=== PATIENT | female | born 1940 | race Caucasian/White ===

== ENCOUNTER → 2024-12-13 | Outpatient (CLI) | payer OTHER, SELFPAY ==
[2024-12-13 13:53] LABS: Collection Type, Urine Clean Catch
[2024-12-13 16:14] LABS: Bacteria,Urine 1+; Bilirubin,Urine Negative (Negative); Blood,Urine 1+ (Negative); Color,Urine Yellow (Lt Yel-Yel); Glucose, Urine Negative (Negative); Ketones,Urine Negative (Negative); Leukocyte Esterase,Urine Positive (Negative); Nitrite,Urine Positive (Negative); PH,Urine 5.5 (5.0-7.0); Protein,Urine Negative (Neg - Trace); RBC,Urine 24 /hpf (0-3); Specific Gravity,Urine 1.012 (1.001-1.035); Squamous Epithelial Cell,Urine 1 /hpf (0-5); Urobilinogen,Urine Negative mg/dL (0.0-1.0); WBC,Urine 950 /hpf (0-5)
[2024-12-13 16:47] LABS: Clarity,Urine Hazy (Clear/Hazy)
== END | disposition home or self-care (01) ==
PROVIDERS: PCP Physician Assistant; Referring Provider Physician Assistant; Visit Provider Physician Assistant
DX: Z01.89 Encounter for other specified special examinations (principal)
CPT/HCPCS: 81001

== ENCOUNTER → 2025-01-20 | Outpatient (CLI) | payer OTHER, SELFPAY ==
[2025-01-20 15:32] LABS: Collection Type, Urine Clean Catch
[2025-01-20 18:04] LABS: Bilirubin,Urine Negative (Negative); Blood,Urine 1+ (Negative); Calcium Oxalate Crystals,Urine 4+; Clarity,Urine Turbid (Clear/Hazy); Color,Urine Yellow (Lt Yel-Yel); Glucose, Urine Negative (Negative); Ketones,Urine Negative (Negative); Leukocyte Esterase,Urine Positive (Negative); Nitrite,Urine Positive (Negative); PH,Urine 6.0 (5.0-7.0); Protein,Urine Trace (Neg - Trace); RBC,Urine 4 /hpf (0-3); Specific Gravity,Urine 1.024 (1.001-1.035); Squamous Epithelial Cell,Urine 3 /hpf (0-5); Urobilinogen,Urine Negative mg/dL (0.0-1.0); WBC,Urine 271 /hpf (0-5)
== END | disposition home or self-care (01) ==
LOC: SLDO 14:56
PROVIDERS: PCP Physician Assistant; Referring Provider Physician Assistant; Visit Provider Physician Assistant
DX: N39.0 Urinary tract infection, site not specified (principal)
CPT/HCPCS: 81001; 87077; 87086; 87186

== ENCOUNTER 2025-03-11 18:09 | Emergency (ER) | payer OTHER, SELFPAY ==
[2025-03-11 18:26] VITALS: BP 138/83; PULSE 90; RESP 19; TEMP 37.1; O2SAT 98
--- NOTE | 2025-03-11 18:28 | XR_ITS ---
Examination:Left hip AP, lateral, AP pelvis 3 views Technique: Hip AP lateral, AP pelvis, 3 views Exam date and time:March 11, 2025 1847 hrs. Indications: Patient fell today with injury to the left hip, left hip pain. Findings: Severe osteopenia No acute left hip fracture or dislocation noted Right hip bones of the pelvis intact Impression: No acute hip or pelvic fracture noted Given the severe osteopenia, recommend 1-2 day follow-up AP pelvis as clinically warranted.
--- NOTE | 2025-03-11 18:28 | XR_ITS ---
Examination: Left hand 2 views Technique one AP lateral left hand 2 views Date and time: March 11, 2025, 1847 hrs. Indications: Patient fell today with injury to the hand, hand pain. Findings: Severe osteopenia On the AP view there appears to be subluxation at the first metacarpophalangeal joint which may be chronic Suspicious for nondisplaced fracture on the AP view involving the base of the fifth metacarpal Impression: Suspicious for fracture at the base of the fifth metacarpal on this limited study, no oblique film On the AP view there appears to be subluxation at the first metacarpal phalangeal joint, this may be chronic, clinical correlation advised
--- NOTE | 2025-03-11 18:28 | XR_ITS ---
Examination: Forearm, left, 2 views. Technique: Forearm, AP, lateral 2 views Date and time of exam: March 11, 2025 1847 hrs. Indications: Patient fell today with injury to the forearm, forearm pain. Findings: Prominent osteopenia. No fracture or dislocation Impression: No fracture or dislocation.
--- NOTE | 2025-03-11 18:28 | XR_ITS ---
Examination: CT brain head without contrast. 2-D sagittal coronal reconstructions Date and time of exam:March 11, 2025, 1938 hrs. Indications: Onset headache today after following CTDI: vol (mGy):51 DLP: (mGycm):1038 Technique: Multiple CT axial sections of the brain have been obtained, 5 mm slice thickness. Contrast has not been administered. 2-D sagittal, coronal reconstructions have been obtained Low dose protocols were performed. One or more of the following dose reduction techniques were used; automated exposure control, adjustment of the mA and/or KV according to patient size, use of iterative reconstruction technique. Findings: No significant ventricular enlargement. Prominent frontal atrophy Intra-axial or extra-axial hemorrhage density is not seen. No mass effect or midline shift Basal cisterns are not remarkable. Fourth ventricle is midline. Cranial vault intact. Impression: Negative for acute hemorrhage, mass effect or midline shift
[2025-03-11 18:30] VITALS: PULSE 85; RESP 18
--- NOTE | 2025-03-11 18:30 | EKG_ITS ---
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
--- NOTE | 2025-03-11 18:31 | PD.EDADULT ---
ED General RME/HPI General Chief complaint: Fall Stated complaint: FALL Time Seen by Provider: 03/11/25 18:16 Arrival date/time: 03/11/25 18:09 RME / HPI RME / HPI narrative: Martha is a 84 y/o female with PMHx of CAD, HTN, who comes in for evaluation after mechanical fall after tripping over her walker when trying to use the restroom. Patient reports that she has had 1 fall before but that was many years ago. She says that she is not on any blood thinners currently and uses a walker at times. She says that she landed on her face and also her left hand and also may have injured her left hip as well. She says that this fall was unwitnessed and she lives at home with her son who went out for a smoking break at the time. She denies losing consciousness or having any feelings of syncope prior to the fall. She is not on any chronic steroids at this time. Denies any associated chest pain, shortness of breath. Related Data Home Medications ?Medication ?Instructions ?Recorded ?Confirmed aspirin 81 mg tablet,delayed 81 mg PO QDAY 07/13/20 11/01/23 release coenzyme Q10 100 mg capsule 100 mg PO QDAY 07/13/20 11/01/23 (CoQ-10) mecobalamin (vitamin B12) 1,000 1,000 mcg PO QDAY 07/13/20 11/01/23 mcg chewable tablet metoprolol tartrate 25 mg tablet 25 mg PO BID 07/13/20 11/01/23 clopidogrel 75 mg tablet 75 mg PO QDAY 09/26/21 11/01/23 Previous Rx's ?Medication ?Instructions ?Recorded benzonatate 100 mg capsule 100 mg PO Q8HR PRN Cough #14 caps 11/06/23 methylprednisolone 4 mg tablets in 4 mg PO QAM #21 tabs 11/06/23 a dose pack (Medrol (Baldemar)) Allergies Allergy/AdvReac Type Severity Reaction Status Date / Time atorvastatin Allergy Severe Hives Verified 11/26/21 06:57 Sulfa (Sulfonamide AdvReac Intermediate Rash, Verified 11/26/21 06:57 Antibiotics) Itching Review of Systems Review of Systems Narrative Review of Systems: Constitutional: No fever, chills, fatigue, weakness, weight loss HEENT: No eye pain, vision loss, ear pain, hearing loss, dysphagia, Cardiovascular: No chest pain, palpitations, edema, pain with walking Respiratory: No cough, shortness of breath, wheezing GI: No NVD, abdominal pain, constipation, blood in stool, loss of appetite, heartburn Extremities: Positive left hip pain, left hand pain, forehead pain MSK: No back pain, joint pain, joint swelling Neuro: No dizziness, numbness, weakness, headaches, seizures, tremors Psych: No anxiety, depression ED Exam Narrative Physical exam: General: AAOx3, NAD, elderly female HEENT: Moist mucous membranes, conjunctiva clear, EOMI, PERRLA, abrasion present on forehead Cardiovascular: S1, S2, radial pulses +2 bilat, RRR Pulmonary: CTAB bilat no cough, no wheezing GI: No tenderness to light or deep palpitation, no guarding, rigidity, rebound tenderness or distension Extremities: TTP of L hand with limited ROM, L hip TTP, TTP to L forearm with limited ROM Neuro: AAOx3, no focal motor or sensory deficits in the UE or LE bilat Psych: Good judgement, thought and behavior Course Quality Measures none Orders Category Date Time Status Bedside COVID-19 Antigen Test NOW Care 03/11/25 18:52 Active Bedside Influenza A&B Antigen Test NOW Care 03/11/25 18:52 Completed EKG (ED ONLY) *Do not use* NOW Care 03/11/25 18:30 Completed Miscellaneous Nursing Order NOW Care 03/11/25 21:04 Active Saline [Insert IV] NOW Care 03/11/25 18:52 Active Straight [In and Out Catheter] X1 Care 03/11/25 18:[address] cervical spine wo con Stat Exams 03/11/25 18:[address] chest abdomen pelvis wo Stat Exams 03/11/25 18:[address] facial bones wo con Stat Exams 03/11/25 18:[address] head/brain wo con Stat Exams 03/11/25 18:28 Completed EKG (ED Only) Stat Exams 03/11/25 18:30 Draft XR chest 1V portable Stat Exams 03/11/25 18:35 Completed XR forearm LT 2V Stat Exams 03/11/25 18:28 Completed XR forearm RT 2V Stat Exams 03/11/25 18:53 Completed XR hand LT 2V Stat Exams 03/11/25 18:28 Completed XR hip LT w pelvis 2-3V Stat Exams 03/11/25 18:28 Completed XR humerus RT min 2V Stat Exams 03/11/25 18:53 Completed XR lumbar spine 1V Stat Exams 03/11/25 18:35 Completed CBC Stat Lab 03/11/25 18:51 Completed CMP [Comprehensive Metabolic Panel] Stat Lab 03/11/25 18:51 Completed Magnesium Stat Lab 03/11/25 18:51 Completed UA, C/S IF [Urinalysis, C/S if Indicated] Stat Lab 03/11/25 20:55 Completed ACETAMINOPHEN w/COD 300-30 [Tylenol w/Cod #3] Med 03/11/25 22:37 Discontinued 2 tab PO X1 ONE Acetaminophen Tab [Tylenol Tab] Med 03/11/25 18:30 Discontinued 650 mg PO X1 ONE Morphine* Inj Med 03/11/25 22:06 Discontinued 4 mg IVP X1 ONE Ondansetron Odt [Zofran Odt] Med 03/11/25 18:30 Discontinued 4 mg PO X1 ONE Ondansetron Odt [Zofran Odt] Med 03/11/25 22:41 Discontinued 4 mg PO X1 ONE Sodium Chloride 0.9% 1000 ml [Ns] 1,000 ml Med 03/12/25 00:45 Discontinued IV 999 mls/hr cloNIDine HCL [Catapres] Med 03/11/25 22:38 Discontinued 0.2 mg PO X1 ONE Vital Signs Vital signs: Vital Signs Temperature 98.7 F 03/11/25 18:26 Pulse Rate 90 03/11/25 18:26 Respiratory Rate 19 03/11/25 18:26 Blood Pressure 138/83 H 03/11/25 18:26 Pulse Oximetry (%) 98 03/11/25 18:26 Oxygen Delivery Method Nasal Cannula 03/11/25 18:26 Oxygen Flow Rate 2 03/11/25 18:26 Discharge Plan Plan Patient Disposition: HOME (Self Care) Prescriptions/Referrals Prescriptions/Med Rec: No Action aspirin 81 mg tablet,delayed release (DR/EC) 81 mg PO QDAY metoprolol tartrate 25 mg tablet 25 mg PO BID coenzyme Q10 [CoQ-10] 100 mg capsule 100 mg PO QDAY mecobalamin (vitamin B12) 1,000 mcg tablet,chewable 1,000 mcg PO QDAY clopidogrel 75 mg tablet 75 mg PO QDAY benzonatate 100 mg Capsule 100 mg PO Q8HR PRN (Reason: Cough) Qty: 14 0RF methylprednisolone [Medrol (Baldemar)] 4 mg tablets,dose pack 4 mg PO QAM Qty: 21 0RF Referrals: Abundio Marie MD [Primary Care Provider, [facility]] - In 1 week Problem List Clinical Impression: Fall, Left hand fracture Patient/Caregiver Discharge Instructions Discharge Activity: activity as tolerated Education Materials: ED Closed Hand Fracture (Adult), ED Fall Prevention Additional Instructions: Discharge instructions from Dr. Saeed: 1. After extensive evaluation, fortunately there is no very serious injury.? Such as brain injury or broken neck or broken back or internal organ injury. 2. Activity as tolerated.? Expect to have aches and pain for a couple of weeks, maybe worse in the next couple of days before improving. 3. Ibuprofen and Tylenol as needed. 4. You may have very mild broken hand, along the pinky side. Keep the fingers/hand/wrist wrapped (as done here) until cleared by a doctor taking care of you. Elevate above the heart level for [address] your hand on your head is a good method. 5. See a private doctor on 03/14/2025 for recheck. Ask to review all test results and official radiology reports, to make sure you receive all necessary follow-ups and monitoring. Ask for help until your left hand is completely better. 6. Seek immediate medical care with severe and persistent headache, persistent vomiting, being extremely drowsy when you should be completely alert and awake, or with any concerns. Print Language: Spanish MDM Narrative MDM hospital course (for use when minimal MDM required): 1851: Ordered labs, gave tylenol and ordered CT CAP with additional films of cervical region, lumbar spine, L hand, forearm and L hip. 2199: Reviewed Films and CT which does not show acute process at this time, will remove cervical collar. Pt may need splint/tape on finger of L hand 2315: Gave clonidine, Zofran and Tylenol with Codeine for pain management and elevated blood pressure 0050: Pt's repeat blood pressure was 70 SBP, we will insert additional IV for IV fluids and watch patient's blood pressure. 0431: Pt's blood pressure improved, medically cleared for discharged. EKG Interpretation EKG #1: EKG Interpretation: NSR, Rate 89, No STEMI, QT 365 Medication Administration(s) Medication Administration History Discontinued Medications Acetaminophen (Acetaminophen 325 Mg Tablet) 650 mg PO X1 ONE Stop: 03/11/25 18:31 Last Admin: 03/11/25 20:00 Dose: 650 mg Documented By: ALEE Acetaminophen/Codeine Phosphate (Acetaminophen W/Cod 300-30 Tablet) 2 tab PO X1 ONE Stop: 03/11/25 22:38 Last Admin: 03/11/25 22:53 Dose: 2 tab Documented By: BD Clonidine (Clonidine Hcl 0.1 Mg Tablet) 0.2 mg PO X1 ONE Stop: 03/11/25 22:39 Last Admin: 03/11/25 22:53 Dose: 0.2 mg Documented By: BD Sodium Chloride (Ns) 1,000 mls @ 999 mls/hr IV .Q1H1M ONE Stop: 03/12/25 01:45 Last Infusion: 03/12/25 01:46 Dose: Infused Documented By: Admin: 03/12/25 00:54 Dose: 999 mls/hr Documented By: PAPO Morphine Sulfate (Morphine Sulf Inj 4 Mg/Ml Vial) 4 mg IVP X1 ONE Stop: 03/11/25 22:07 Last Admin: 03/11/25 22:48 Dose: Not Given Documented By: BD Non-Admin Reason: Cancelled by Provider Ondansetron HCl (Ondansetron Odt 4 Mg Tabrap) 4 mg PO X1 ONE; Protocol Stop: 03/11/25 18:31 Last Admin: 03/11/25 20:01 Dose: 4 mg Documented By: ALEE Ondansetron HCl (Ondansetron Odt 4 Mg Tabrap) 4 mg PO X1 ONE; Protocol Stop: 03/11/25 22:42 Last Admin: 03/11/25 22:54 Dose: 4 mg Documented By: BD
--- NOTE | 2025-03-11 18:35 | XR_ITS ---
Examination: AP lumbar spine single view Technique: AP lumbar spine single view Date and time: March 11, 2025 1647 hrs. Indications: Patient fell today with injury to lower back, lower back pain. Findings: Severe osteopenia Lumbar levoscoliosis 20 degrees There is no lateral lumbar spine film Impression: Incomplete study Recommend follow-up lateral view of the lumbar spine
--- NOTE | 2025-03-11 18:35 | XR_ITS ---
Examination: AP chest single view Technique one AP portable supine chest single view Date and time: March 11, 2025, 185 hrs., Comparison October 27, 2023 Indications: Patient fell today with chest pain Findings: Mild prominence cardiac contour No pneumothorax. Prominent osteopenia. Clavicles ribs appear intact Impression: No pneumothorax pulmonary contusion or hemothorax
--- NOTE | 2025-03-11 18:38 | XR_ITS ---
Examination: CT maxillofacial, without intravenous contrast. 2-D sagittal reconstructions. 3-D reconstructions. Date and time of exam:March 11, 2025, 1940 hrs. Indications: Patient fell today with injury to the face, facial pain CTDI: vol (mGy):19.3 DLP: (mGycm):421 Technique: Multiple axial images of maxillofacial region, 3.0 mm slice thickness. 2-D sagittal and coronal reconstructions. 3-D reconstructions. Low dose protocols were performed. One or more of the following dose reduction techniques were used; automated exposure control, adjustment of the mA and/or KV according to patient size, use of iterative reconstruction technique. Findings: Frontal bone frontal sinuses intact. Orbital rims intact Old appearing left nasal bone fracture No depression zygomatic arches Pterygoid plates maxilla and the mandible appear intact No soft tissue facial hematoma Impression: No acute facial fracture.
--- NOTE | 2025-03-11 18:52 | XR_ITS ---
Examination: CT chest, without intravenous contrast. CT abdomen, without intravenous contrast. CT pelvis, without intravenous contrast. 2-D sagittal and coronal reconstructions. 3-D reconstructions. Date and time of exam:March 11, 2025, 1944 hrs. Indications: Patient fell today with into the chest and abdomen, chest pain abdomen pain CTDI vol (mgy) 12.3 DLP (MGycm)900 Technique: Multiple CT images, 3.0 mm slice thickness, obtained chest, abdomen, pelvis, with the high-resolution 64 slice scanner.. Sagittal and coronal 2-D reconstructions are obtained. 3-D reconstructions Low dose protocols were performed. One or more of the following dose reduction techniques were used; automated exposure control, adjustment of the mA and/or KV according to patient size, use of iterative reconstruction technique. Findings: Aorta pulmonary arteries intact Heavy calcification left anterior descending coronary artery Mitral valvular calcification No hemopericardium No pneumothorax pulmonary contusion or hemothorax The manubrium and the body of the sternum intact No thoracic lumbar vertebral body compression fracture Grade 1-2 spondylolisthesis L5 on S1 Ribs appear intact No liver splenic or renal laceration, no perinephric hematoma Retrocardiac gastric hernia Absent gallbladder No pancreatic mass Nodular thickening both adrenal glands Heavy abdominal aortic calcification, the aorta is intact with no free blood in the abdomen Negative for pneumoperitoneum 12 mm fat-containing umbilical hernia Colonic diverticulosis, intact urinary bladder Sacral segments and bones of the pelvis, hips appear intact Impression: Thoracic aorta pulmonary arteries appear intact No pneumothorax pulmonary contusion or hemothorax No abdominal parenchymal laceration Abdominal aorta intact No free blood in the abdomen or pelvis Bones are significantly demineralized but appear intact
--- NOTE | 2025-03-11 18:52 | XR_ITS ---
Examination: CT cervical spine without contrast 2-D sagittal reconstructions 2-D coronal reconstructions 3-D reconstructions. Exam date and time:March 11, 2025, 1942 hrs. Indications: Patient fell today with injury to the neck, neck pain CTDI:vol (mGy) 13.7 DLP: (mGycm) 317 Technique: Multiple 2 mm axial sections of the cervical spine have been obtained. The coronal and sagittal reconstructions have been obtained. 3-D reconstructions have been obtained. Low dose protocols were performed. One or more of the following dose reduction techniques were used; automated exposure control, adjustment of the mA and/or KV according to patient size, use of iterative reconstruction technique. Findings: Axial sections demonstrate intact base of the skull. C1 exhibit satisfactory relationship to the odontoid. No acute cervical vertebral body fracture seen. Alignment posterior spinous processes satisfactory. Impression: No acute cervical fracture.
--- NOTE | 2025-03-11 18:53 | XR_ITS ---
Examination: Humerus 2 views right Technique: Humerus, AP lateral 2 views Date and time of exam: March 11, 2025, 1954 hrs. Indications: Patient fell today with injury to the arm, arm pain. Findings: No acute fracture No shoulder dislocation Impression: No acute fracture
--- NOTE | 2025-03-11 18:53 | XR_ITS ---
Examination: Forearm, right, 2 views. Technique: Forearm, AP, lateral 2 views Date and time of exam: March 11, 2025, 1954 hrs. Indications: Patient fell today with injury to the forearm, forearm pain. Findings: Severe osteopenia. No acute fracture Impression: Severe osteopenia No acute fracture. On the lateral view the distal ulna is dorsally positioned mildly, clinical correlation advised, recommend follow-up true lateral view the wrist as clinically warranted Impression: No acute fracture
[2025-03-11 19:13] LABS: Basophils # (Auto) 0.0 Thou/mm3 (0.0-0.2); Basophils % (Auto) 1 % (0-2.5); Eosinophils # (Auto) 0.3 Thou/mm3 (0.0-0.5); Eosinophils % (Auto) 5 % (0-10); Hematocrit 38.2 % (36.0-46.0); Hemoglobin 12.8 g/dL (12.0-16.0); Immature Granulocytes Auto 0.02 Thou/mm3 (0.00-0.00); Lymphocytes # (Auto) 1.2 Thou/mm3 (1.0-4.8); Lymphocytes % (Auto) 17 % (10-50); Mean Corpuscular HGB Conc 33.5 g/dl (31.0-37.0); Mean Corpuscular Hemoglobin 29.4 pg (25.0-35.0); Mean Corpuscular Volume 88 fL (80-100); Monocytes # (Auto) 0.7 Thou/mm3 (0.0-0.8); Monocytes % (Auto) 10 % (0-12); Neutrophils # (Auto) 5.1 Thou/mm3 (1.8-7.7); Neutrophils % (Auto) 68 % (37-80); Nucleated Red Blood Cell # 0.00 Thou/mm3 (0.00-0.00); Nucleated Red Blood Cell % 0 /100 WBC (0); Platelet Count 246 Thou/mm3 (140-440); RDW Standard Deviation 42.9 fL (36.4-46.3); Red Blood Count 4.35 Miln/mm3 (4.00-5.20); White Blood Count 7.4 Thou/mm3 (3.6-11.0)
[2025-03-11 19:26] LABS: Alanine Aminotransferase 8 U/L (10-49); Albumin, Serum 3.9 gm/dL (3.4-4.8); Albumin/Globulin Ratio 1.6 (1.2-2.2); Alkaline Phosphatase 102 U/L (46-116); Anion Gap 8 (7-16); Aspartate Amino Transferase 16 U/L (0-34); BUN/Creatinine Ratio 18 Ratio (12-20); Bilirubin,Total 0.2 mg/dL (0.3-1.2); Blood Urea Nitrogen 23 mg/dL (9-23); Calcium 9.3 mg/dL (8.3-10.6); Calcium (Corrected) 9.4 mg/dL (8.5-10.1); Carbon Dioxide 30.3 mMol/L (20.0-31.0); Chloride 106 mMol/L (98-107); Creatinine (Component) 1.3 mg/dL (0.6-1.3); Globulin 2.4 gm/dL (2.3-3.5); Glucose 170 mg/dL (74-106); Magnesium 2.2 mg/dL (1.6-2.6); Osmolality,Calculated 294 (275-295); Potassium 3.8 mMol/L (3.4-5.1); Sodium 144 mMol/L (136-145); Total Protein 6.3 gm/dL (5.7-8.2); eGFR 40 See Note
[2025-03-11] MEDS: ACETAMINOPHEN 325 MG TABLET 650 MG PO (20:00)
[2025-03-11] MEDS: ONDANSETRON ODT 4 MG TABRAP PO ×2 (20:01→22:54)
[2025-03-11 21:28] LABS: Collection Type, Urine Clean Catch
[2025-03-11 21:42] LABS: Bilirubin,Urine Negative (Negative); Blood,Urine Negative (Negative); Clarity,Urine Clear (Clear/Hazy); Color,Urine Lt-Yellow (Lt Yel-Yel); Culture Indicated,Urine Not Indicated; Glucose, Urine Negative (Negative); Hyaline Casts,Urine < 1 /hpf (0-1); Ketones,Urine Negative (Negative); Leukocyte Esterase,Urine Negative (Negative); Nitrite,Urine Negative (Negative); PH,Urine 6.5 (5.0-7.0); Protein,Urine Negative (Neg - Trace); RBC,Urine 4 /hpf (0-3); Specific Gravity,Urine 1.022 (1.001-1.035); Squamous Epithelial Cell,Urine 1 /hpf (0-5); Urobilinogen,Urine Negative mg/dL (0.0-1.0); WBC,Urine < 1 /hpf (0-5)
[2025-03-11 21:49] VITALS: BP 190/99; PULSE 73; RESP 16; TEMP 36.9; O2SAT 96
[2025-03-11 22:53] VITALS: BP 204/90; PULSE 73
[2025-03-11] MEDS: ACETAMINOPHEN w/COD 300-30 TABLET 2 TAB PO (22:53)
[2025-03-12 00:02] VITALS: BP 105/60; PULSE 72; RESP 16; TEMP 37; O2SAT 96
[2025-03-12] MEDS: SODIUM CHLORIDE 0.9% 1000 ML 1,000 ML 999 ML IV (00:54)
[2025-03-12 02:00] VITALS: BP 86/57; PULSE 60; RESP 16; TEMP 36.9; O2SAT 96
[2025-03-12 03:06] VITALS: BP 113/60; PULSE 60; RESP 16; TEMP 36.9; O2SAT 95
[2025-03-12 04:30] VITALS: BP 115/60; PULSE 60; RESP 16; TEMP 36.9; O2SAT 98
== END 2025-03-12 04:34 | disposition home or self-care (01) ==
PROVIDERS: Emergency Medicine; PCP Family Medicine
DX: S62.92XA Unspecified fracture of left hand, initial encounter for closed fracture (principal); W19.XXXA Unspecified fall, initial encounter; I10 Essential (primary) hypertension; I25.10 Atherosclerotic heart disease of native coronary artery without angina pectoris; Z79.52 Long term (current) use of systemic steroids
CPT/HCPCS: 36415; 70450; 70486; 71045; 71250; 72020; 72125; 73060; 73090; 73120; 73502; 74176; 80053; 81001; 83735; 85025; 87400; 87811; 93005; 96360; 99285; J2270; J7030; Q0162; A9270

== ENCOUNTER 2025-05-05 14:28 | Emergency (ER) | payer OTHER, SELFPAY ==
--- NOTE | 2025-05-05 14:36 | EKG_ITS ---
[facility] Test Date: 2025-05-05 Pat Name: MICHELLE SERRANO Department: Room: - Gender: Female Peritoneal Dialysis Registered Nurse: : 1940 Requested By: Temo Barr Order Number: [id number] Reading MD: Temo Barr Measurements Intervals [place] Rate: 100 P: 40 TX: 143 QRS: -63 QRSD: 93 T: 86 QT: 325 QTc: 419 Interpretive Statements SINUS TACHYCARDIA LOW QRS VOLTAGE IN PRECORDIAL LEADS [QRS DEFLECTION < 1.0 mV IN CHEST LEADS] LEFT ANTERIOR FASCICULAR BLOCK [QRS AXIS <= -45, QR IN I, RS IN II] NONSPECIFIC T-WAVE ABNORMALITY Compared to ECG 03/11/2025 18:39:45 Low QRS voltage now present T-wave abnormality now present Sinus rhythm no longer present Myocardial infarct finding no longer present /store/S0/[id number]/ecg/[id number].pdf
--- NOTE | 2025-05-05 14:36 | XR_ITS ---
EXAMINATION: AP chest single view TECHNIQUE: AP portable semiupright chest single view Date and time: May 05, 2025, 1522 hours INDICATIONS: Chest pain coughing beginning 2 days ago. FINDINGS: Mild prominence left ventricle Ectatic thoracic aorta. Mild vascular congestion. No lobar pneumonia Prominent osteopenia IMPRESSION: No lobar pneumonia
[2025-05-05 14:45] VITALS: BP 141/93; PULSE 97; RESP 16; TEMP 36.8; O2SAT 96
--- NOTE | 2025-05-05 14:48 | PD.EDCHEST ---
ED Chest Pain RME/HPI General Chief Complaint: Chest Pain Stated Complaint: CHEST PAIN Time Seen by Provider: 05/05/25 14:35 Arrival date/time: 05/05/25 14:28 Limitations: no limitations RME / HPI RME / HPI narrative: 85 year old female who presents to the ED BIBA for evaluation of chest pain. She reports the onset of substernal chest pain approximately one hour after eating. The pain is described as persistent, located more to the right than the left, and is not associated with shortness of breath, nausea, or diaphoresis. Pain is not relieved by position changes. The patient has a history of a couple of heart attacks and has had three stents placed in the past. She denies any history of diabetes. Related Data Home Medications ?Medication ?Instructions ?Recorded ?Confirmed aspirin 81 mg tablet,delayed 81 mg PO QDAY 07/13/20 11/01/23 release coenzyme Q10 100 mg capsule 100 mg PO QDAY 07/13/20 11/01/23 (CoQ-10) mecobalamin (vitamin B12) 1,000 1,000 mcg PO QDAY 07/13/20 11/01/23 mcg chewable tablet metoprolol tartrate 25 mg tablet 25 mg PO BID 07/13/20 11/01/23 clopidogrel 75 mg tablet 75 mg PO QDAY 09/26/21 11/01/23 Previous Rx's ?Medication ?Instructions ?Recorded benzonatate 100 mg capsule 100 mg PO Q8HR PRN Cough #14 caps 11/06/23 methylprednisolone 4 mg tablets in 4 mg PO QAM #21 tabs 11/06/23 a dose pack (Medrol (Baldemar)) Allergies Allergy/AdvReac Type Severity Reaction Status Date / Time atorvastatin Allergy Severe Hives Verified 05/05/25 15:24 Sulfa (Sulfonamide AdvReac Intermediate Rash, Verified 05/05/25 15:24 Antibiotics) Itching Review of Systems Review of Systems Systems Reviewed: All systems reviewed, normal except as documented Past Medical History Past Medical History CARDIAC: Positive Cardiac Disorders, Myocardial Infarction, Atherosclerotic Heart Disease and Hypertension GASTROINTESTINAL: Positive Gastrointestinal Disorders and Irritable Bowel GENITOURINARY: Positive Genitourinary Disorders and Kidney Stones REPRODUCTIVE: Positive Previous Pregnancies MUSCULOSKELETAL: Positive Arthritis ENT: Positive Cataracts PSYCHO/SOCIAL: Positive Anxiety Surgical History SURGICAL: Positive Coronary Stent, Angiogram, Abdominal Surgery and Hysterectomy Social History SMOKING STATUS: Never smoker ED Exam General Limitations: Present no limitations General appearance: Present alert and in no apparent distress Head Head exam: Present atraumatic, normocephalic and normal inspection Eye Eye exam: Present normal appearance, PERRL and EOMI ENT ENT exam: Present normal exam, normal oropharynx and mucous membranes moist Neck Neck exam: Present normal inspection, full ROM and trachea midline Chest Chest inspection: Present normal inspection and symmetric chest wall rise Respiratory Respiratory exam: Present normal lung sounds bilaterally Cardiovascular Cardiovascular exam: Present regular rate, normal rhythm and normal heart sounds Abdominal Exam Abdominal exam: Present soft and normal bowel sounds Extremities Exam Extremities exam: Present normal inspection and full ROM Back Exam Back exam: Present normal inspection and full ROM Neurological Exam Neurological exam: Present alert, oriented X3 and CN II-XII intact Psychiatric Psychiatric exam: Present normal affect and normal mood Skin Skin exam: Present warm, dry, intact and normal color Course Quality Measures none Orders Category Date Time Status It Infrastructure Consultant NOW Care 05/05/25 14:36 Active Continuous Pulse Oximetry NOW Care 05/05/25 14:36 Completed EKG (ED ONLY) *Do not use* NOW Care 05/05/25 14:36 Completed Insert IV NOW Care 05/05/25 14:36 Active EKG (ED Only) Stat Exams 05/05/25 14:36 Draft XR chest 1V portable Stat Exams 05/05/25 14:36 Completed CBC Stat Lab 05/05/25 15:13 Completed Comprehensive Metabolic Panel Stat Lab 05/05/25 15:13 Completed Partial Thromboplastin Time Stat Lab 05/05/25 16:08 Completed Prothrombin Time with INR Stat Lab 05/05/25 16:08 Completed Troponin I Stat Lab 05/05/25 15:13 Completed Troponin I Stat Lab 05/05/25 17:22 Completed Urinalysis Stat Lab 05/05/25 14:36 Ordered Famotidine Inj [Pepcid Inj] Med 05/05/25 14:37 Discontinued 20 mg IVP X1 ONE Lidocaine 2% Viscous [Xylocaine 2% Viscous] Med 05/05/25 14:39 Discontinued 15 ml PO X1 ONE Milk Of Magnesia Susp [Mom Susp] Med 05/05/25 14:38 Discontinued 30 ml PO X1 ONE Morphine* Inj Med 05/05/25 14:37 Discontinued 2 mg IVP X1 ONE Ondansetron Inj [Zofran Inj] Med 05/05/25 14:37 Discontinued 4 mg IVP X1 ONE Sodium Chloride 0.9% 1000 ml [Ns] 1,000 ml Med 05/05/25 14:36 Active IV 100 mls/hr Oxygen Delivery NOW RT 05/05/25 14:36 Active Vital Signs Vital signs: Vital Signs Temperature 98.2 F 05/05/25 14:45 Pulse Rate 97 05/05/25 14:45 Respiratory Rate 16 05/05/25 14:45 Blood Pressure 141/93 H 05/05/25 14:45 Pulse Oximetry (%) 96 05/05/25 14:45 Oxygen Delivery Method Room Air 05/05/25 14:45 Pulse ox is 96% on room air which is adequate. Chest Pain MDM Narrative MDM Narrative:: Arabella Espinosa am scribing for and in the presence of Dr. Lopez. Patient data External records reviewed:: [facility] previous records Clinical information provided by:: patient Social determinants that could affect healthcare access:: none Patient has the following chronic illnesses:: The patient has a history of a couple of heart attacks and has had three stents placed in the past How is presenting disease/condition affected by chronic disease/condition?: exacerbated by Evaluation data The following diagnostics were reviewed and interpreted by me:: lab results, radiology exam(s) and EKG tracing(s) (EKG @ 15:05, interpreted by me, sinus tachycardia, rate 100, left anterior fascicular block, no STEMI. ) Lab and/or radiology exams considered but not ordered:: None Interpretation Summary: Ordering Physician: Temo Lopez MD Date of Service: 05/05/25 Procedure(s): XR chest 1V portable Accession Number(s): [id number] cc: Temo Lopez MD; Jorge A Velasquez MD; Abundio Marie MD~ EXAMINATION: AP chest single view TECHNIQUE: AP portable semiupright chest single view Date and time: May 05, 2025, 1522 hours INDICATIONS: Chest pain coughing beginning 2 days ago. FINDINGS: Mild prominence left ventricle Ectatic thoracic aorta. Mild vascular congestion. No lobar pneumonia Prominent osteopenia IMPRESSION: No lobar pneumonia Dictated By: Jorge A Velasquez MD Signed By: <Electronically signed by Jorge A Velasquez MD in [place]> 05/05/25 1629 Medications / Prescriptions Medications or Prescriptions considered but not ordered:: None Medication administrations:: Medication Administration History Sodium Chloride (Ns) 1,000 mls @ 100 mls/hr IV .Q10H ONE Stop: 05/06/25 00:35 Last Admin: 05/05/25 15:26 Dose: 100 mls/hr Documented By: ED Discontinued Medications Famotidine (Famotidine Inj 10 Mg/Ml Vial 2 Ml) 20 mg IVP X1 ONE Stop: 05/05/25 14:38 Last Admin: 05/05/25 16:03 Dose: 20 mg Documented By: ED Lidocaine HCl (Lidocaine Viscous 2% 15 Ml Udc) 15 ml PO X1 ONE Stop: 05/05/25 14:40 Last Admin: 05/05/25 15:55 Dose: 15 ml Documented By: ED Magnesium Hydroxide (Milk Of Magnesia Susp 30 Ml Udc) 30 ml PO X1 ONE; Protocol Stop: 05/05/25 14:39 Last Admin: 05/05/25 15:54 Dose: 30 ml Documented By: ED Morphine Sulfate (Morphine Sulf Inj 4 Mg/Ml Vial) 2 mg IVP X1 ONE Stop: 05/05/25 14:38 Last Admin: 05/05/25 15:56 Dose: 2 mg Documented By: ED Ondansetron HCl (Ondansetron Inj 2 Mg/Ml Inj 2 Ml) 4 mg IVP X1 ONE; Protocol Stop: 05/05/25 14:38 Last Admin: 05/05/25 16:01 Dose: 4 mg Documented By: ED See above Consultations Consultation(s) initiated? (list below): No Diagnosis Most likely diagnosis given after review of the tests above:: Chest pain Admission Indicated Admission indicated?: not indicated Explain why admission is indicated or not indicated:: With no condition needing emergent intervention, there was no indication for admission. Admission Request Was there a request for admission?: No Disposition Plan Disposition Plan: Discharge Discharge Attestation Discharge Attestation: The patient and all family members were given an opportunity to ask questions and understood the discharge instructions. Discharge instructions specifically effects, indications for sooner follow up or return to the emergency department, and the expected course of current diagnosis. Patient condition: Stable Discharge Plan Plan Patient Disposition: HOME (Self Care) Patient condition on transfer: Stable Prescriptions/Referrals Prescriptions/Med Rec: No Action aspirin 81 mg tablet,delayed release (DR/EC) 81 mg PO QDAY metoprolol tartrate 25 mg tablet 25 mg PO BID coenzyme Q10 [CoQ-10] 100 mg capsule 100 mg PO QDAY mecobalamin (vitamin B12) 1,000 mcg tablet,chewable 1,000 mcg PO QDAY clopidogrel 75 mg tablet 75 mg PO QDAY benzonatate 100 mg Capsule 100 mg PO Q8HR PRN (Reason: Cough) Qty: 14 0RF methylprednisolone [Medrol (Baldemar)] 4 mg tablets,dose pack 4 mg PO QAM Qty: 21 0RF Referrals: Abundio Marie MD [Primary Care Provider, Family Practice] - In 1 week Problem List Clinical Impression: Chest pain Patient/Caregiver Discharge Instructions Discharge Activity: activity as tolerated Education Materials: ED Chest Pain, Uncertain Cause Additional Instructions: Continue your regular medications. See your doctor or bellows assembler in 1 day and discuss your chest pain with them. Print Language: Danish Stand Alone Forms: Lo Award Info., Patient Portal Info Letter
[2025-05-05 15:06] VITALS: PULSE 102; RESP 18; O2SAT 86
[2025-05-05 15:11] VITALS: BMI 31.2
[2025-05-05 15:12] VITALS: PULSE 94; O2SAT 98
--- NOTE | 2025-05-05 15:14 | PC.NURSE ---
Pt. here from home to room 1, pt. states she had her Thanksgiving dinner and felt heart burn X 1000. Pt. 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 states the pain didn't go away so her son called 911. Pt. states she has 3 stents and had a CT X 4 years ago. Pt. states she gets SOB and has to rest after doing any activities. Pt. states the SOB has been about the last 6 months. No s/s of distress at this time.
[2025-05-05 15:25] LABS: Basophils # (Auto) 0.0 Thou/mm3 (0.0-0.2); Basophils % (Auto) 0 % (0-2.5); Eosinophils # (Auto) 0.1 Thou/mm3 (0.0-0.5); Eosinophils % (Auto) 1 % (0-10); Hematocrit 42.3 % (36.0-46.0); Hemoglobin 13.7 g/dL (12.0-16.0); Immature Granulocytes Auto 0.08 Thou/mm3 (0.00-0.00); Lymphocytes # (Auto) 1.9 Thou/mm3 (1.0-4.8); Lymphocytes % (Auto) 15 % (10-50); Mean Corpuscular HGB Conc 32.4 g/dl (31.0-37.0); Mean Corpuscular Hemoglobin 29.2 pg (25.0-35.0); Mean Corpuscular Volume 90 fL (80-100); Monocytes # (Auto) 1.3 Thou/mm3 (0.0-0.8); Monocytes % (Auto) 11 % (0-12); Neutrophils # (Auto) 8.9 Thou/mm3 (1.8-7.7); Neutrophils % (Auto) 73 % (37-80); Nucleated Red Blood Cell # 0.00 Thou/mm3 (0.00-0.00); Nucleated Red Blood Cell % 0 /100 WBC (0); Platelet Count 303 Thou/mm3 (140-440); RDW Standard Deviation 46.5 fL (36.4-46.3); Red Blood Count 4.69 Miln/mm3 (4.00-5.20); White Blood Count 12.3 Thou/mm3 (3.6-11.0)
[2025-05-05] MEDS: SODIUM CHLORIDE 0.9% 1000 ML 1,000 ML 100 ML IV (15:26)
[2025-05-05 15:46] LABS: Alanine Aminotransferase 12 U/L (10-49); Albumin, Serum 4.7 gm/dL (3.4-4.8); Albumin/Globulin Ratio 1.8 (1.2-2.2); Alkaline Phosphatase 106 U/L (46-116); Anion Gap 11 (7-16); Aspartate Amino Transferase 17 U/L (0-34); BUN/Creatinine Ratio 27 Ratio (12-20); Bilirubin,Total 0.3 mg/dL (0.3-1.2); Blood Urea Nitrogen 40 mg/dL (9-23); Calcium 10.0 mg/dL (8.3-10.6); Calcium (Corrected) 10.0 mg/dL (8.5-10.1); Carbon Dioxide 30.5 mMol/L (20.0-31.0); Chloride 103 mMol/L (98-107); Creatinine (Component) 1.5 mg/dL (0.6-1.3); Estimated Creatinine Clearance 23.5 mL/min (>60); Globulin 2.6 gm/dL (2.3-3.5); Glucose 113 mg/dL (74-106); Osmolality,Calculated 297 (275-295); Potassium 3.8 mMol/L (3.4-5.1); Sodium 144 mMol/L (136-145); Total Protein 7.3 gm/dL (5.7-8.2); Troponin I 0.022 ng/mL (0.0-0.045); eGFR 34 See Note
[2025-05-05] MEDS: Milk Of Magnesia Susp 30 ML UDC PO (15:54)
[2025-05-05] MEDS: LIDOCAINE VISCOUS 2% 15 ML UDC PO (15:55)
[2025-05-05] MEDS: MORPHINE SULF INJ 4 MG/ML VIAL 2 MG IVP (15:56)
[2025-05-05] MEDS: ONDANSETRON INJ 2 MG/ML INJ 2 ML 4 MG IVP (16:01)
[2025-05-05] MEDS: FAMOTIDINE INJ 10 MG/ML VIAL 2 ML 20 MG IVP (16:03)
[2025-05-05 16:44] LABS: INR 1.0 (0.9-1.3); Partial Thromboplastin Time 21.4 Seconds (22.0-36.0); Prothrombin Time 10.6 Seconds (9.0-12.2)
--- NOTE | 2025-05-05 16:45 | PC.NURSE ---
Pt. resting with her eyes closed.
[2025-05-05 17:50] LABS: Troponin I < 0.020 ng/mL (0.0-0.045)
[2025-05-05 18:22] LABS: Collection Type, Urine Clean Catch
[2025-05-05 18:58] LABS: Bacteria,Urine Rare; Bilirubin,Urine Negative (Negative); Blood,Urine Negative (Negative); Clarity,Urine Clear (Clear/Hazy); Color,Urine Yellow (Lt Yel-Yel); Glucose, Urine Negative (Negative); Hyaline Casts,Urine < 1 /hpf (0-1); Ketones,Urine Negative (Negative); Leukocyte Esterase,Urine Positive (Negative); Nitrite,Urine Negative (Negative); PH,Urine 5.5 (5.0-7.0); Protein,Urine Trace (Neg - Trace); RBC,Urine 6 /hpf (0-3); Specific Gravity,Urine 1.031 (1.001-1.035); Squamous Epithelial Cell,Urine 5 /hpf (0-5); Urobilinogen,Urine Negative mg/dL (0.0-1.0); WBC,Urine 11 /hpf (0-5)
[2025-05-05 19:11] VITALS: BP 179/85; PULSE 81; RESP 19; TEMP 36.6; O2SAT 96
== END 2025-05-05 19:48 | disposition home or self-care (01) ==
PROVIDERS: Emergency Provider Family Medicine; PCP Family Medicine
DX: R07.9 Chest pain, unspecified (principal); R05.9 Cough, unspecified; R00.0 Tachycardia, unspecified; I44.4 Left anterior fascicular block; I25.2 Old myocardial infarction; I10 Essential (primary) hypertension; I25.10 Atherosclerotic heart disease of native coronary artery without angina pectoris; Z95.5 Presence of coronary angioplasty implant and graft
CPT/HCPCS: 36415; 71045; 80053; 81001; 84484; 85025; 85610; 85730; 93005; 96374; 96375; 99284; J2270; J2405; J3490; J7030; A9270

== ENCOUNTER → 2025-05-31 | Outpatient (CLI) | payer OTHER, SELFPAY | END | disposition home or self-care (01) | LOC: SLDO 14:14 | PROVIDERS: PCP Physician Assistant; Referring Provider Physician Assistant; Visit Provider Physician Assistant | DX: N39.0 Urinary tract infection, site not specified (principal) | CPT/HCPCS: 87077; 87086; 87186 ==